=== PATIENT | female | born 1995 | race Caucasian/White ===

== ENCOUNTER 2016-12-12 06:31 | Emergency (ER) | payer MEDICAID ==
--- NOTE | 2016-12-12 06:47 | Emergency Department Record ---
History of Present Illness - General Chief complaint: ENT Stated complaint: SORE THROAT Time Seen by Provider: 12/12/16 06:32 Source: Patient Mode of Arrival: Ambulatory Limitations: No limitations - History of Present Illness Initial comments: 21 yo female presents to ED with a 2-day history of sore throat, non-productive cough, and fever of 100 degrees last night. Patient denies difficulty breathing or wheezing symptoms, and denies ill contacts. Patient reports a history of asthma and hypothyroid. MD complaint: Sore throat Onset/Timin -: Days(s) Location: Throat Severity scale (1-10): 7 Quality: Aching Consistency: Constant, Getting worse Improves with: None Worsens with: None Associated Symptoms: Cough, Sore throat - Related Data Home Medications Medication Instructions Recorded Confirmed Last Taken Metformin HCl 1,000 mg PO DAILY 03/22/16 12/12/16 04/15/16 Ibuprofen [Motrin 600Mg] 600 mg PO Q6H 12/12/16 12/12/16 12/12/16 06:00 Allergies Allergy/AdvReac Type Severity Reaction Status Date / Time No Known Drug Allergies Allergy Verified 10/30/15 09:32 Travel Screening - Travel/Exposure Within Last 30 Days Have you traveled within the last 30 days?: No Review of Systems Constitutional: Reports: Fever. Denies: Chills, Malaise, Night sweats Eyes: Denies: Eye discharge, Eye pain ENT: Reports: Throat pain. Denies: Congestion, Ear pain, Epistaxis Respiratory: Denies: Cough, Dyspnea Cardiovascular: Denies: Chest pain, Dyspnea on exertion Endocrine: Denies: Fatigue, Heat or cold intolerance Gastrointestinal: Denies: Abdominal pain, Nausea, Vomiting Genitourinary: Denies: Dysuria, Frequency, Hematuria Musculoskeletal: Denies: Arthralgia, Back pain, Gout, Joint swelling Skin: Denies: Bruising, Change in color Neurological: Denies: Abnormal gait, Confusion, Headache, Seizure Psychiatric: Denies: Anxiety Hematological/Lymphatic: Denies: Anemia, Blood Clots Past Medical History - SOCIAL HISTORY Smoking Status: Never smoker Alcohol Use: None Drug Use: None - RESPIRATORY Hx Respiratory Disorders: Yes Hx Asthma: Yes - CARDIOVASCULAR Hx Cardio Disorders: No - NEURO Hx Neuro Disorders: No - GI Hx GI Disorders: No - Hx Genitourinary Disorders: No - ENDOCRINE Hx Endocrine Disorders: Yes Hx Diabetes: Yes Hx Thyroid Disease: Yes Comment:: hyper-insulinism - MUSCULOSKELETAL Hx Musculoskeletal Disorders: No - PSYCH Hx Psych Problems: No - HEMATOLOGY/ONCOLOGY Hx Hematology/Oncology Disorders: No Family Medical History Any Significant Family History?: Yes Hx Cancer: Grandparents *Cancer Comment: grandmother-cervical and ovarian ca Physical Exam - General General Appearance: Alert, Oriented x3, Cooperative, No acute distress Limitations: No limitations - Head Head exam: Atraumatic, Normocephalic, Normal inspection Head exam detail: negative: Abrasion, Contusion, Estrada's sign, General tenderness, Hematoma, Laceration - Eye Eye exam: Normal appearance. negative: Conjunctival injection, Periorbital swelling, Periorbital tenderness - ENT Ear exam: negative: Auricular hematoma, Auricular trauma Nasal Exam: negative: Active bleeding, Discharge, Dried blood, Foreign body Mouth exam: negative: Drooling, Laceration, Muffled voice, Tongue elevation Throat exam: Normal inspection. negative: Tonsillar erythema, Tonsillomegaly, Tonsillar exudate, R peritonsillar mass, L peritonsillar mass - Neck Neck exam: Normal inspection. negative: Meningismus, Tenderness - Respiratory Respiratory exam: Normal lung sounds bilaterally. negative: Rales, Respiratory distress, Rhonchi, Stridor - Cardiovascular Cardiovascular Exam: Regular rate, Normal rhythm, Normal heart sounds - GI/Abdominal GI/Abdominal exam: Soft. negative: Rebound, Rigid, Tenderness - Rectal Rectal exam: Deferred - exam: Deferred - Extremities Extremities exam: Normal inspection. negative: Calf tenderness, Pedal edema, Tenderness - Back Back exam: Reports: Normal inspection. Denies: CVA tenderness (R), CVA tenderness (L) - Neurological Neurological exam: Alert, Normal gait, Oriented X3 - Psychiatric Psychiatric exam: Normal affect, Normal mood - Skin Skin exam: Normal color. negative: Abrasion Type of lesion: negative: abrasion Course Vital Signs 12/12/16 06:35 Temperature 97.8 F Pulse Rate 77 Respiratory 18 Rate Blood Pressure 141/96 Pulse Ox 97 - Reevaluation(s) Reevaluation #1: 12/12/16 06:56 Rapid strep negative Patient and her mother updated on her negative strep results, and the patient appears stable for discharge with symptomatic care. Disposition Disposition: Discharge Clinical Impression: Pharyngitis Qualifiers: Pharyngitis/tonsillitis etiology: unspecified etiology Qualified Code(s): J02.9 - Acute pharyngitis, unspecified Disposition: Home, Self-Care Condition: (2) Stable Instructions: Pharyngitis (ED) Additional Instructions: Return to ED if your symptoms worsen or if you have any concerns. Tylenol and Motrin as directed. Follow-up with your family doctor in 3-5 days as directed. Forms: Patient Portal Access Time of Disposition: 06:47
== END 2016-12-12 07:05 | disposition home or self-care (01) ==
LOC: ER 06:31
DX: J02.9 Acute pharyngitis, unspecified (principal)
CPT/HCPCS: 87880; 99282

== ENCOUNTER 2017-07-04 21:52 | Emergency (ER) | payer MEDICAID ==
[2017-07-04] MEDS: Diph,Pert(Acell),Tet Vac 0.5 ML SYR IM ONE (22:26)
--- NOTE | 2017-07-04 22:30 | Emergency Department Record ---
History of Present Illness - General Chief Complaint: Laceration(s) Stated Complaint: LT HAND LACERATION Time Seen by Provider: 07/04/17 22:10 Source: Patient Mode of Arrival: Ambulatory Limitations: No limitations - History of Present Illness Initial Commments: pt cut palm with scissors while cutting sisters hair. Onset/Timin -: Hour(s) Extremity Location: Left: Hand Place: Home Context: Accidental Associated Symptoms: None Treatments Prior to Arrival: Bandage - [place] Coma Scale Eye Response: (4) Open spontaneously Motor Response: (6) Obeys commands Verbal Response: (5) Oriented [place] Total: 15 - Related Data Home Medications Medication Instructions Recorded Confirmed Last Taken Levothyroxine Sodium [Synthroid] 75 mcg PO DAILY 07/04/17 07/04/17 Unknown Allergies Allergy/AdvReac Type Severity Reaction Status Date / Time No Known Drug Allergies Allergy Verified 10/30/15 09:32 Travel Screening - Travel/Exposure Within Last 30 Days Have you traveled within the last 30 days?: No - Travel/Exposure Within Last Year Have you traveled outside the [place] in the last year?: No - Additonal Travel Details Have you been exposed to anyone with a communicable illness?: No - Travel Symptoms Symptom Screening: None Review of Systems Reviewed: No additional complaints except as noted below Constitutional: Reports: As per HPI. Denies: Chills, Fever, Malaise, Night sweats, Weakness, Weight change Eyes: Reports: As per HPI. Denies: Eye discharge, Eye pain, Photophobia, Vision change ENT: Reports: As per HPI. Denies: Congestion, Dental pain, Ear pain, Epistaxis , Hearing loss, Throat pain Respiratory: Reports: As per HPI. Denies: Cough, Dyspnea, Hemoptysis, Stridor, Wheezes Cardiovascular: Reports: As per HPI. Denies: Arrhythmia, Chest pain, Dyspnea on exertion, Edema, Murmurs, Orthopnea, Palpitations, Paroxysmal nocturnal dyspnea, Rheumatic Fever, Syncope Endocrine: Reports: As per HPI. Denies: Fatigue, Heat or cold intolerance, Polydipsia, Polyuria Gastrointestinal: Reports: As per HPI. Denies: Abdominal pain, Constipation, Diarrhea, Hematemesis, Hematochezia, Melena, Nausea, Vomiting Genitourinary: Reports: As per HPI. Denies: Abnormal menses, Discharge, Dyspareunia, Dysuria, Frequency, Hematuria, Incontinence, Retention, Urgency Musculoskeletal: Reports: As per HPI. Denies: Arthralgia, Back pain, Gout, Joint swelling, Myalgia, Neck pain Skin: Reports: As per HPI. Denies: Bruising, Change in color, Change in hair/ nails, Lesions, Pruritus, Rash Neurological: Reports: As per HPI. Denies: Abnormal gait, Confusion, Headache, Numbness, Paresthesias, Seizure, Tingling, Tremors, Vertigo, Weakness Psychiatric: Reports: As per HPI. Denies: Anxiety, Auditory hallucinations, Depression, Homicidal thoughts, Suicidal thoughts, Visual hallucinations Hematological/Lymphatic: Reports: As per HPI. Denies: Anemia, Blood Clots, Easy bleeding, Easy bruising, Swollen glands Past Medical History - SOCIAL HISTORY Smoking Status: Never smoker Alcohol Use: None Drug Use: None - RESPIRATORY Hx Respiratory Disorders: Yes Hx Asthma: Yes - CARDIOVASCULAR Hx Cardio Disorders: No - NEURO Hx Neuro Disorders: No - GI Hx GI Disorders: No - Hx Genitourinary Disorders: No - ENDOCRINE Hx Endocrine Disorders: Yes Hx Diabetes: Yes Hx Thyroid Disease: Yes Comment:: hyper-insulinism - MUSCULOSKELETAL Hx Musculoskeletal Disorders: No - PSYCH Hx Psych Problems: No - HEMATOLOGY/ONCOLOGY Hx Hematology/Oncology Disorders: No Family Medical History Any Significant Family History?: No Hx Cancer: Grandparents *Cancer Comment: grandmother-cervical and ovarian ca Physical Exam - General General Appearance: Alert, Oriented x3, Cooperative, No acute distress - Head Head exam: Normal inspection - Eye Eye exam: Normal appearance, PERRL, EOMI Pupils: Normal accommodation - ENT ENT exam: Normal exam, Mucous membranes moist, Normal external ear exam, Normal orophraynx Ear exam: Normal external inspection. negative: External canal tenderness Nasal Exam: Normal inspection. negative: Discharge, Sinus tenderness Mouth exam: Normal external inspection, Tongue normal Teeth exam: Normal inspection. negative: Dental caries Throat exam: Normal inspection. negative: Tonsillar erythema, Tonsillar exudate - Neck Neck exam: Normal inspection, Full ROM. negative: Tenderness - Respiratory Respiratory exam: Normal lung sounds bilaterally. negative: Respiratory distress - Cardiovascular Cardiovascular Exam: Regular rate, Normal rhythm, Normal heart sounds - GI/Abdominal GI/Abdominal exam: Soft, Normal bowel sounds. negative: Tenderness - Rectal Rectal exam: Deferred - exam: Deferred - Extremities Extremities exam: Normal inspection, Full ROM, Normal capillary refill, Tenderness Image of Hand: 1 - 1.5cm lac - Back Back exam: Reports: Normal inspection, Full ROM. Denies: Muscle spasm, Rash noted, Tenderness - Neurological Neurological exam: Alert, CN II-XII intact, Normal gait, Oriented X3 - Psychiatric Psychiatric exam: Normal affect, Normal mood - Skin Skin exam: Dry, Intact, Normal color, Warm Course Vital Signs 07/04/17 21:55 Temperature 98.4 F Pulse Rate 75 Respiratory 20 Rate Blood Pressure 143/97 Pulse Ox 99 Disposition Disposition: Discharge Clinical Impression: Laceration of hand Qualifiers: Encounter type: initial encounter Foreign body presence: without foreign body Laterality: left Qualified Code(s): S61.412A - Laceration without foreign body of left hand, initial encounter Disposition: Home, Self-Care Condition: (1) Good Instructions: Laceration (ED) Additional Instructions: follow up with family doctor. return sooner if worse. stitches out in 7-8 days Forms: Patient Portal Access Quality - Quality Measures Quality Measures: N/A - Blood Pressure Screening Does Patient Have Any of the Following: No Blood Pressure Classification: Hypertensive Reading Systolic Measurement: 143 Diastolic Measurement: 97 Screening for High Blood Pressure: < First Hypertensive BP, F/U Documented > [ G8950] First Hypertensive Follow-up Interventions: Follow-up with rescreen GT 1 day and LT 4 weeks. Laceration - Other - Time Out Informed consent:: Informed consent obtained Confirmed first & last name, , procedure, correct site?: Yes Start Date:: 07/04/17 Start Time:: 22:20 - Location Location of laceration:: Left Laceration located on:: Hand Length of laceration:: 1.5 Length of laceration:: cm - Clean and Prep Laceration cleaning method:: Cleansed Laceration cleaning agent:: Normal Saline - Local Anesthetic Lidocaine used:: 1% Lidocaine dose:: 1 mL - Medication Medicated for procedure?: No - Procedural Detail Foreign body in the wound?: No Undermining was preformed?: No Stent applied?: No [place] applied?: No Skin suture pattern:: Interrupted Suture material/size:: 5-0: Nylon Number of skin sutures:: 2 - Post Procedural Detail Complications:: No Procedure Tolerated by Patient:: Well
== END 2017-07-04 22:54 | disposition home or self-care (01) ==
LOC: ER 21:52
DX: S61.412A Laceration without foreign body of left hand, initial encounter (principal); W26.8XXA Contact with other sharp object(s), not elsewhere classified, initial encounter; Y93.F9 Activity, other caregiving
CPT/HCPCS: 12001; 90715; 96372; 99283

== ENCOUNTER 2017-09-02 16:11 | Emergency (ER) | payer MEDICAID ==
[2017-09-02] MEDS: CLINDAMYCIN 150 MG CAP PO ONE (16:55)
[2017-09-02] MEDS: NAPROXEN 250 MG TABLET PO ONE (16:56)
--- NOTE | 2017-09-02 16:57 | Emergency Department Record ---
History of Present Illness - General Chief complaint: ENT Stated complaint: INFECTION IN MOUTH Time Seen by Provider: 09/02/17 16:49 Source: Patient Mode of Arrival: Ambulatory Limitations: No limitations - History of Present Illness Initial comments: The patient has had dental pain for a month. She does have an appointment with a dentist for tomorrow. The pain is mainly over the L upper molar area and there is swelling to the roof of the mouth. She denies any pain with swallowing or fever or neck issues. MD complaint: Tooth pain Onset/Timin -: Month(s) Severity scale (1-10): 7 Quality: Aching Consistency: Constant Improves with: None Worsens with: None Associated Symptoms: Gum swelling - Related Data Previous Rx's Medication Instructions Recorded Clindamycin HCl [Cleocin HCl] 300 mg PO QID #28 capsule 09/02/17 Naproxen [Naprosyn] 250 mg PO BID #14 tablet 09/02/17 Allergies Allergy/AdvReac Type Severity Reaction Status Date / Time No Known Drug Allergies Allergy Verified 10/30/15 09:32 Travel Screening - Travel/Exposure Within Last 30 Days Have you traveled within the last 30 days?: No - Travel/Exposure Within Last Year Have you traveled outside the [place] in the last year?: No - Additonal Travel Details Have you been exposed to anyone with a communicable illness?: No - Travel Symptoms Symptom Screening: None Review of Systems Constitutional: Denies: Chills, Fever Eyes: Denies: Eye discharge ENT: Denies: Congestion Respiratory: Denies: Cough, Dyspnea Past Medical History - SOCIAL HISTORY Smoking Status: Never smoker Alcohol Use: None Drug Use: None - RESPIRATORY Hx Respiratory Disorders: Yes Hx Asthma: Yes - CARDIOVASCULAR Hx Cardio Disorders: No - NEURO Hx Neuro Disorders: No - GI Hx GI Disorders: No - Hx Genitourinary Disorders: No - ENDOCRINE Hx Endocrine Disorders: Yes Hx Diabetes: Yes Hx Thyroid Disease: Yes Comment:: hyper-insulinism - MUSCULOSKELETAL Hx Musculoskeletal Disorders: No - PSYCH Hx Psych Problems: No - HEMATOLOGY/ONCOLOGY Hx Hematology/Oncology Disorders: No Family Medical History Any Significant Family History?: No Hx Cancer: Grandparents *Cancer Comment: grandmother-cervical and ovarian ca Physical Exam - General General Appearance: Alert, Oriented x3, Cooperative, No acute distress - Head Head exam: Atraumatic, Normocephalic, Normal inspection - Eye Eye exam: Normal appearance, PERRL - ENT ENT exam: Normal external ear exam Ear exam: Normal external inspection Nasal Exam: Normal inspection Teeth exam: Dental tenderness #, Gingival enlargement (to the roof of the mouth medial to the L upper molars.). negative: Normal inspection Throat exam: Normal inspection. negative: Tonsillar erythema, Tonsillar exudate , R peritonsillar mass, L peritonsillar mass Image of Mouth/Teeth: 1 - Area of swelling and tenderness. - Neck Neck exam: Normal inspection, Full ROM. negative: Lymphadenopathy, Meningismus , Tenderness - Respiratory Respiratory exam: Normal lung sounds bilaterally - Cardiovascular Cardiovascular Exam: Regular rate, Normal rhythm, Normal heart sounds Course Vital Signs 09/02/17 16:31 Pulse Rate 80 Respiratory 16 Rate Blood Pressure 140/100 Pulse Ox 95 - Reevaluation(s) Reevaluation #1: I did explain to the patient that it appears she has a dental infection and we will place her on appropriate medicines and she will need to keep her appointment for tomorrow with her Dentist. 09/02/17 16:55 Disposition Disposition: Discharge Clinical Impression: Pain, dental Disposition: Home, Self-Care Condition: (2) Stable Instructions: Dental Abscess (ED) Additional Instructions: Please continue the medicines and see your Dentist tomorrow. Return to the ER for any worsening problems. Prescriptions: Clindamycin HCl [Cleocin HCl] 300 mg PO QID #28 capsule Naproxen [Naprosyn] 250 mg PO BID #14 tablet Forms: Patient Portal Access Time of Disposition: 16:57 Quality - Quality Measures Quality Measures: N/A - Blood Pressure Screening View Details: Yes Does Patient Have Any of the Following: No Blood Pressure Classification: Hypertensive Reading Systolic Measurement: 138 Diastolic Measurement: 93 Screening for High Blood Pressure: < Normal BP, F/U Not Required > [G8783]
== END 2017-09-02 17:06 | disposition home or self-care (01) ==
LOC: ER 16:11
DX: K04.7 Periapical abscess without sinus (principal)
CPT/HCPCS: 99282

== ENCOUNTER 2018-03-28 07:32 | Emergency (ER) | payer MEDICAID ==
[2018-03-28] MEDS ORDERED: 0.9 % SODIUM CHLORIDE 1,000 ML BAG IV ONE (07:41)
[2018-03-28] MEDS ORDERED: ONDANSETRON HCL IV 4 MG/2 ML VIAL IVP ONE (07:41)
--- NOTE | 2018-03-28 07:46 | Emergency Department Record ---
History of Present Illness - General Chief Complaint: Abdominal Pain Stated Complaint: RIGHT SIDE ABDOMINAL PAIN Time Seen by Provider: 03/28/18 07:40 Source: Patient Mode of Arrival: Ambulatory Limitations: No limitations - History of Present Illness Initial Comments: 22 yo female presents with abdominal pain. The onset was last night at 10pm. She has nausea. No vomiting. The pain is sharp and radiates from the epigastric to the RUQ. No history of abdominal surgery. No hematuria, no fever , no chest pain or shortness of breath. She has had similar symptoms once or twice a month the last 6 months. She has not had any imaging. Her last meal was last night. MD Complaint: Abdominal pain -: Month(s) (On and Off 6 months) Location: Epigastric, RUQ Radiation: Epigastric, RUQ Migration to: RUQ Severity: Moderate Quality: Sharp Consistency: Constant Improves With: Nothing Worsens With: Nothing Associated Symptoms: Nausea - Related Data Patient : No Home Medications Medication Instructions Recorded Confirmed Last Taken Ranitidine HCl [Zantac] 150 mg PO DAILY 03/28/18 03/28/18 Unknown Previous Rx's Medication Instructions Recorded Hydrocodone/Acetaminophen [[place] 1 each PO Q6H #10 tablet 03/28/18 5-325 Tablet] Ondansetron [Zofran Odt] 4 mg PO Q8H #15 tab.rapdis 03/28/18 Pantoprazole Sodium [Protonix] 40 mg PO DAILY #30 tablet. 03/28/18 Allergies Allergy/AdvReac Type Severity Reaction Status Date / Time No Known Drug Allergies Allergy Verified 03/28/18 07:38 Travel Screening - Travel/Exposure Within Last 30 Days Have you traveled within the last 30 days?: No Review of Systems Constitutional: Denies: Chills, Fever, Malaise, Weakness, Other Eyes: Denies: Eye discharge, Eye pain, Photophobia, Vision change ENT: Denies: Congestion, Throat pain Respiratory: Denies: Cough, Dyspnea, Hemoptysis, Stridor, Wheezes Cardiovascular: Denies: Chest pain, Palpitations, Syncope Endocrine: Denies: Fatigue, Polydipsia, Polyuria Gastrointestinal: Reports: As per HPI, Abdominal pain, Nausea. Denies: Constipation, Diarrhea, Hematemesis, Hematochezia, Vomiting Genitourinary: Denies: Dysuria, Urgency Musculoskeletal: Denies: Arthralgia, Back pain, Joint swelling, Myalgia Skin: Denies: Bruising, Change in color, Rash Neurological: Denies: Headache, Numbness, Weakness Psychiatric: Denies: Anxiety Hematological/Lymphatic: Denies: Easy bleeding, Easy bruising Past Medical History - SOCIAL HISTORY Smoking Status: Never smoker Alcohol Use: None Drug Use: None - RESPIRATORY Hx Respiratory Disorders: Yes Hx Asthma: Yes - CARDIOVASCULAR Hx Cardio Disorders: No - NEURO Hx Neuro Disorders: No - GI Hx GI Disorders: Yes Hx Reflux: Yes - Hx Genitourinary Disorders: No - ENDOCRINE Hx Endocrine Disorders: Yes Hx Diabetes: Yes Hx Thyroid Disease: Yes Comment:: hyper-insulinism - MUSCULOSKELETAL Hx Musculoskeletal Disorders: No - PSYCH Hx Psych Problems: No - HEMATOLOGY/ONCOLOGY Hx Hematology/Oncology Disorders: No Family Medical History Any Significant Family History?: Yes Hx Cancer: Grandparents *Cancer Comment: grandmother-cervical and ovarian ca Physical Exam - General General Appearance: Alert, Oriented x3, Cooperative, No acute distress Limitations: No limitations - Head Head exam: Normal inspection - Eye Eye exam: Normal appearance, PERRL. negative: Conjunctival injection, Scleral icterus - ENT ENT exam: Normal exam, Mucous membranes moist Ear exam: Normal external inspection Nasal Exam: Normal inspection Mouth exam: Normal external inspection - Neck Neck exam: Normal inspection, Full ROM. negative: Tenderness - Respiratory Respiratory exam: Normal lung sounds bilaterally. negative: Respiratory distress - Cardiovascular Cardiovascular Exam: Regular rate, Normal rhythm, Normal heart sounds - GI/Abdominal GI/Abdominal exam: Soft, Tenderness (Tender RUQ and epigastric, otherwise soft abdomen). negative: Distended, Guarding, Rebound, Rigid - Rectal Rectal exam: Deferred - exam: Deferred - Extremities Extremities exam: Normal inspection - Back Back exam: Reports: Normal inspection, Full ROM. Denies: Muscle spasm, Rash noted, Tenderness - Neurological Neurological exam: Alert, Normal gait, Oriented X3 - Psychiatric Psychiatric exam: Normal affect, Normal mood - Skin Skin exam: Dry, Intact, Normal color, Warm Course Vital Signs 03/28/18 07:35 Temperature 98.1 F Pulse Rate 79 Respiratory 18 Rate Blood Pressure 154/96 Pulse Ox 98 - Reevaluation(s) Reevaluation #1: 03/28/18 09:07 No acute changes on the labs with normal CBC,CMP,Lipase. UA negative HCG 03/28/18 09:08 03/28/18 09:43 The US result was reviewed. No gallstones or acute findings. Fatty liver likely based on body habitus. I discussed the case with Dr Mitchell. With normal labs, normal US he recommends follow up outpatient with him and schedule for HIDA scan prior to that. A referral was placed. Specialty clinic called to facilitate the outpatient work up. Medical Decision Making - Lab Data Result diagrams: 03/28/18 08:20 03/28/18 08:20 Disposition Disposition: Discharge Clinical Impression: Epigastric pain, Right upper quadrant pain Disposition: Home, Self-Care Condition: (1) Good Instructions: Abdominal Pain (ED) Additional Instructions: You will need to eat a very bland diet without fatty foods to prevent the pain Return or be seen if the pain returns, vomiting, or any new concerns. Prescriptions: Hydrocodone/Acetaminophen [[place] 5-325 Tablet] 1 each PO Q6H #10 tablet Ondansetron [Zofran Odt] 4 mg PO Q8H #15 tab.rapdis Pantoprazole Sodium [Protonix] 40 mg PO DAILY #30 tablet. Referrals: Praveen Mitchell [DOCTOR OF OSTEOPATH] - [facility] Specialty Clinics [Provider Group] Forms: Patient Portal Access Quality - Quality Measures Quality Measures: N/A - Blood Pressure Screening Does Patient Have Any of the Following: No Blood Pressure Classification: Hypertensive Reading Systolic Measurement: 154 Diastolic Measurement: 96 Screening for High Blood Pressure: < Pre-Hypertensive BP, F/U Documented > [ G8950] Pre-Hypertensive Follow-up Interventions: Referral to alternative/primary care provider.
[2018-03-28] MEDS ORDERED: KETOROLAC 30 MG/ML VIAL IVP ONE (07:47)
[2018-03-28] MEDS ORDERED: FENTANYL PF 100MCG/2ML VIAL IVP ONE (07:55)
[2018-03-28 08:31] LABS: BASO % 0.3 % (0-6); EOS % 0.9 % (0-6); GRAN % 57.8 % (47-80); HEMATOCRIT 42.2 % (35.0-47.0); HEMOGLOBIN 13.5 gm/dl (11.6-16.0); LYMPH % 34.5 % (16-45); MEAN CELL VOLUME 83.2 fl (81-97); MEAN CORPUSCULAR HEMOGLOBIN 26.6 pg (27-33); MEAN PLATELET VOLUME 11.1 fl (7.4-10.4); MONO % 6.5 % (0-9); PLATELET COUNT 207 K/uL (130-400); RED BLOOD COUNT 5.07 M/uL (3.80-5.40); RED CELL DISTRIBUTION WIDTH 14.3 % (11.5-14.5); URINE APPEARANCE CLEAR; URINE BILIRUBIN NEGATIVE (NEGATIVE); URINE BLOOD LARGE (NEGATIVE); URINE COLOR YELLOW; URINE GLUCOSE (UA) NEGATIVE (NEGATIVE); URINE KETONE NEGATIVE (NEGATIVE); URINE LEUKOCYTE ESTERASE NEGATIVE (NEGATIVE); URINE NITRITE NEGATIVE (NEGATIVE); URINE PROTEIN NEGATIVE (NEGATIVE); URINE UROBILINOGEN 0.2 E.U./dL (0.20 - 1.00); WHITE BLOOD COUNT W/O DIFF 6.4 K/uL (4.2-12.2)
[2018-03-28 08:37] LABS: HCG,QUALITATIVE URINE NEGATIVE (NEGATIVE)
[2018-03-28 08:39] LABS: BLOOD UREA NITROGEN 13 mg/dL (6-20); CREATININE 0.5 mg/dL (0.5-0.9); EST GLOMERULAR FILTRATION RATE > 60 mL/min
[2018-03-28 08:40] LABS: TOTAL PROTEIN 7.7 g/dL (6.6-8.7)
[2018-03-28 08:42] LABS: GLUCOSE,RANDOM 111 mg/dL (74-109)
[2018-03-28 08:44] LABS: ALT/SGPT 28 U/L (<33); URINE EPITHELIAL CELLS 0 - 2 (FEW); URINE RBC >50 (NONE SEEN)
[2018-03-28 08:45] LABS: ALB/GLOB RATIO 1.2 (1.1-1.8); ALBUMIN 4.2 g/dL (4.0-5.0); ALKALINE PHOSPHATASE 51 U/L (35-104); AST/SGOT 24 U/L (10.0-35.0); LIPASE 19 U/L (13-60); URINE AMORPHOUS SEDIMENT 2+
--- NOTE | 2018-03-29 11:42 | ULTRASOUND REPORT ---
EXAM: EMERGENCY COMPLETE ABDOMEN ULTRASOUND HISTORY: RIGHT UPPER QUADRANT EPIGASTRIC PAIN AFTER EATING. TECHNIQUE: Complete real-time ultrasound examination of the abdomen was obtained. Comparison: None. FINDINGS: The grid casting machine operator helper notes that the exam was quite limited by the patient' s body habitus as well as overlying gas. Several of the organs as detailed below were not well seen because of this. The majority of the pancreas was visualized and was negative as seen with no pancreatic mass or peripancreatic fluid collection identified. The abdominal aorta appears negative with no aneurysm seen. The IVC was relatively poorly seen, but negative as visualized. The liver is relatively poorly seen due to overlying artifact with no gross hepatic mass or intrahepatic biliary dilatation seen. Coarsened echogenicity of the liver may represent some diffuse fatty infiltration of the liver or other diffuse hepatic parenchymal disease. The right kidney measures 11.8 cm in length with no hydronephrosis evident. The common duct was seen and was of normal caliber. No gallstones are identified and no pericholecystic fluid collection is seen. The grid casting machine operator helper did indicate a positive sonographic Hook's sign, however. The left kidney measures 12.5 cm in length with no hydronephrosis evident. The spleen is partially obscured by overlying rib artifact, but negative as visualized with no splenic mass evident. IMPRESSION: 1. THE EXAM IS SOMEWHAT LIMITED BY PATIENT BODY HABITUS AND OVERLYING ARTIFACT. 2. COARSENED ECHOGENICITY OF THE LIVER WHICH MAY REPRESENT SOME DIFFUSE FATTY INFILTRATION OF THE LIVER. 3. NO GALLSTONES OR BILIARY DILATATION SEEN. THE MEDICAL BILLING CODER DOES INDICATE A POSITIVE SONOGRAPHIC HOOK'S SIGN, HOWEVER. 4. NO HYDRONEPHROSIS EVIDENT. JOB NUMBER: [id number] MTDD
== END 2018-03-28 10:15 | disposition home or self-care (01) ==
LOC: ER 07:32
DX: R10.13 Epigastric pain (principal); R10.11 Right upper quadrant pain; R11.0 Nausea; E11.9 Type 2 diabetes mellitus without complications
CPT/HCPCS: 99284 ×2; 96374; 96375; 83690; 85025; 80053; 81001; 81025; 76700; J1885; J2405; J3010; J7030

== ENCOUNTER 2018-04-18 08:59 | Day surgery (SDC) | payer MEDICAID ==
[2018-04-18] MEDS ORDERED: ONDANSETRON HCL IV 4 MG/2 ML VIAL IVP ONE (09:00)
[2018-04-18] MEDS ORDERED: ACETAMINOPHEN 1,000 MG/100 ML BTL IV ONE (09:00)
[2018-04-18] MEDS ORDERED: FAMOTIDINE 20MG TABLET PO ONE (09:00)
[2018-04-18] MEDS ORDERED: ROCURONIUM BROMIDE 50MG/5ML VIAL IV ONE (09:00)
[2018-04-18] MEDS ORDERED: DESFLURANE 240 ML BTL INH ONE (09:00)
[2018-04-18] MEDS ORDERED: MECLIZINE 25 MG TABLET PO ONE (09:00)
[2018-04-18] MEDS ORDERED: PROPOFOL 10 MG/ML VIAL IV ONE (09:00)
[2018-04-18] MEDS ORDERED: LIDOCAINE 1% MDV (10MG/ML) 20ML VIAL SQ ONE (09:00)
[2018-04-18] MEDS ORDERED: SUCCINYLCHOLINE 20 MG/ML 10ML IVP ONE (09:00)
[2018-04-18] MEDS ORDERED: FENTANYL PF 100MCG/2ML VIAL IV ONE (09:00)
[2018-04-18] MEDS ORDERED: BUPIVACAINE 0.25% W/EPI MPF 30ML VIAL IVP ONE (09:00)
[2018-04-18] MEDS ORDERED: SCOPOLAMINE 1 PATCH TDSY TD ONE (09:00)
[2018-04-18] MEDS ORDERED: GLYCOPYRROLATE 0.2 MG/ML ML IV ONE (09:00)
[2018-04-18] MEDS ORDERED: METOCLOPRAMIDE 10 MG TABLET PO ONE (09:00)
[2018-04-18] MEDS ORDERED: ACETAMINOPHEN 500 MG TABLET PO ONE (09:00)
[2018-04-18] MEDS ORDERED: NEOSTIGMINE 1 MG/1 ML,10ML VIAL IV ONE (09:00)
--- NOTE | 2018-04-18 13:20 | Operative Note ---
DATE OF SURGERY: 04/18/2018 Surgeon: Praveen Mitchell DO Referring physician: Twila Santiago PREOPERATIVE DIAGNOSES: 1. Cholelithiasis. 2. Chronic cholecystitis. POSTOPERATIVE DIAGNOSES: 1. Cholelithiasis. 2. Chronic cholecystitis. OPERATION: Laparoscopic cholecystectomy. Indication: The patient is a 22-year-old female who is having ongoing right subcostal post prandial pain. Imaging studies did reveal cholelithiasis with evidence of acute cholecystitis. We did discuss cholecystectomy versus medical management. She desired surgical intervention. The patient was morbidly obese, over 300 pounds on a 5 feet 1 inch frame, and the complications were discussed, which included, but not limited to, bleeding, infection, wound infection, possibly an open operation, bile duct injury, bowel leak. She understood this fully and consent was signed, questions were answered. PROCEDURE: She was taken to the operating room and placed in the supine position. General anesthesia was administered per the Department of Anesthesia. The patient's abdomen was prepped and draped in the usual fashion. The supraumbilical region was anesthetized with a total of 5 mL of 0.25% Sensorcaine with epinephrine. A supraumbilical incision was made, this was carried down to the anterior rectus fascia. This is incised. A Duy clamp was placed in the fascial edges and brought up through the wound. Stay sutures of 0 Vicryl placed. The posterior rectus sheath was identified and incised, the peritoneal cavity was entered bluntly. At this time, a 10 mm blunt Olivia port was placed and adequate pneumoperitoneum was established. Under direct visualization an additional 5 mm epigastric and two 5 mm right subcostal ports were placed. The patient had severe fatty infiltration of her liver, it was somewhat challenging retracting her gallbladder up over the top. I attempted to place a fifth port in the right mid abdomen, through this track was placed going down trans colon, giving us excellent exposure. The hepatocystic triangle was thoroughly dissected out. There was no aberrant anatomy, no posterior ductal structures. The distal aspect of half of the gallbladder was released from the cystic plate, elongating a rectoductal window. The cystic duct and the cystic artery were clearly identified. There were no other anatomic structures noted. There was no aberrant anatomy, no posterior ductal structures. The cystic artery was taken down with the use of the Colin harmonic. The cystic duct was triply clipped and cut in a standard fashion. The gallbladder was then taken off the liver bed with the Colin harmonic. This did peel off somewhat due to the weight of the liver itself, this was then placed into the EndoCatch bag and brought out through the supraumbilical port. The right upper quadrant was rechecked and noted to be hemostatic, no bleeding, no bile leak, and no bowel injury noted. The patient was leveled out and the pneumoperitoneum was released, all ports removed. The fascia closed with 0 Vicryl in a [id number] fashion. The skin in all five ports was closed with 4-0 Vicryl. She was taken to the recovery room in satisfactory condition. FINDINGS AT THE TIME OF SURGERY: Chronic cholecystitis. CC: Twila HERRING
== END 2018-04-18 12:36 | disposition home or self-care (01) ==
LOC: SUR 08:59
PROVIDERS: ATTEND Surgery
DX: K82.8 Other specified diseases of gallbladder (principal); E87.6 Hypokalemia; E11.9 Type 2 diabetes mellitus without complications; Z79.84 Long term (current) use of oral hypoglycemic drugs
CPT/HCPCS: 36416; 81025; 82948; C1776; J0330; J2405; J2710

== ENCOUNTER 2018-05-23 13:37 | Emergency (ER) | payer MEDICAID ==
--- NOTE | 2018-05-23 14:12 | Emergency Department Record ---
History of Present Illness - General Chief Complaint: General Stated Complaint: WOUND FROM GALLBLADDER SURGERY HAS OPENED UP Time Seen by Provider: 05/23/18 13:41 Source: Patient, Family Mode of arrival: Ambulatory Limitations: No limitations - History of Present Illness Initial Comments: 22 yo female presents with a wound that opened on her umbilical incision site from a 04/18/18 surgery. She noted some drainage. The wound opened one week ago. No fevers. She has not contacted Dr Mitchell. Normal appetite. No fevers. MD Complaint: Wound re-check Initial Visit For: Other Returns Today for: Wound recheck Symptoms Since Prior Visit: No new symptoms Associated Symptoms: None - Related Data Previous Rx's Medication Instructions Recorded Cephalexin [Keflex] 500 mg PO QID #28 cap 05/23/18 Allergies Allergy/AdvReac Type Severity Reaction Status Date / Time No Known Drug Allergies Allergy Verified 03/28/18 07:38 Review of Systems Constitutional: Denies: Chills, Fever, Malaise, Weakness Eyes: Denies: Eye discharge ENT: Denies: Congestion, Throat pain Respiratory: Denies: Cough Cardiovascular: Denies: Chest pain, Syncope Endocrine: Denies: Fatigue Gastrointestinal: Denies: Abdominal pain, Diarrhea, Nausea, Vomiting Genitourinary: Denies: Dysuria Musculoskeletal: Denies: Arthralgia, Myalgia Skin: Denies: Bruising, Change in color, Rash Neurological: Denies: Headache Psychiatric: Denies: Anxiety Hematological/Lymphatic: Denies: Easy bleeding, Easy bruising Past Medical History - SOCIAL HISTORY Smoking Status: Never smoker - RESPIRATORY Hx Asthma: Yes - CARDIOVASCULAR Hx Cardio Disorders: No - NEURO Hx Neuro Disorders: No - GI Hx GI Disorders: Yes - Hx Genitourinary Disorders: No - ENDOCRINE Hx Endocrine Disorders: Yes Hx Diabetes: Yes Hx Thyroid Disease: Yes Comment:: hyper-insulinism - MUSCULOSKELETAL Hx Musculoskeletal Disorders: No - PSYCH Hx Psych Problems: No - HEMATOLOGY/ONCOLOGY Hx Hematology/Oncology Disorders: No Family Medical History Hx Cancer: Grandparents *Cancer Comment: grandmother-cervical and ovarian ca Physical Exam - General General Appearance: Alert, Oriented x3, Cooperative, No acute distress Limitations: No limitations - Head Head exam: Atraumatic, Normal inspection - Eye Eye exam: Normal appearance - ENT ENT exam: Normal exam Ear exam: Normal external inspection Nasal Exam: Normal inspection Mouth exam: Normal external inspection - Neck Neck exam: Normal inspection - Respiratory Respiratory exam: Normal lung sounds bilaterally - Cardiovascular Cardiovascular Exam: Regular rate, Normal rhythm, Normal heart sounds - GI/Abdominal GI/Abdominal exam: Soft, Other (5mm x 2mm x 3mm deep wound inferior portion of the umbilical incision). negative: Distended, Guarding, Rebound, Rigid, Tenderness - Rectal Rectal exam: Deferred - exam: Deferred - Extremities Extremities exam: Normal inspection - Neurological Neurological exam: Alert, Oriented X3 - Psychiatric Psychiatric exam: Normal affect, Normal mood - Skin Skin exam: Dry, Normal color, Warm. negative: Intact Course - Reevaluation(s) Reevaluation #1: 5mm x 2mm wound opening on the inferior area of the umbilical incision site. I SW Dr Mitchell. He recommends iodoform packing and follow up with him in the office 1/4 inch packing placed. She was given instructions for home and to change the dressing PRN We discussed follow up and reasons to return to the ED. 05/23/18 14:03 Disposition Disposition: Discharge Clinical Impression: Wound dehiscence Disposition: Home, Self-Care Condition: (1) Good Instructions: Acute Wound Care (ED) Additional Instructions: Change the packing as needed if it falls out Follow up with Dr Mitchell on Wednesday Return if worse, red, pain fever or concerns. Prescriptions: Cephalexin [Keflex] 500 mg PO QID #28 cap Referrals: Praveen Mitchell [DOCTOR OF OSTEOPATH] - [facility] [Provider Group] Forms: Patient Portal Access Time of Disposition: 14:12 Quality - Quality Measures Quality Measures: N/A - Blood Pressure Screening Does Patient Have Any of the Following: No Blood Pressure Classification: Hypertensive Reading Systolic Measurement: 137 Diastolic Measurement: 96 Screening for High Blood Pressure: < Pre-Hypertensive BP, F/U Documented > [ G8950] Pre-Hypertensive Follow-up Interventions: Referral to alternative/primary care provider.
== END 2018-05-23 14:46 | disposition home or self-care (01) ==
LOC: ER 13:37
DX: T81.32XA Disruption of internal operation (surgical) wound, not elsewhere classified, initial encounter (principal); E11.9 Type 2 diabetes mellitus without complications
CPT/HCPCS: 99283

== ENCOUNTER 2019-07-11 21:20 | Emergency (ER) | payer MEDICAID ==
[2019-07-12 00:05] LABS: URINE APPEARANCE CLEAR; URINE BILIRUBIN NEGATIVE (NEGATIVE); URINE BLOOD NEGATIVE (NEGATIVE); URINE COLOR YELLOW; URINE GLUCOSE (UA) NEGATIVE (NEGATIVE); URINE KETONE NEGATIVE (NEGATIVE); URINE LEUKOCYTE ESTERASE NEGATIVE (NEGATIVE); URINE NITRITE NEGATIVE (NEGATIVE); URINE PROTEIN NEGATIVE (NEGATIVE)
[2019-07-12 00:08] LABS: HCG,QUALITATIVE URINE NEGATIVE (NEGATIVE)
[2019-07-12] MEDS ORDERED: ACETAMINOPHEN 500 MG TABLET PO ONE (00:35)
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
== END 2019-07-12 01:39 | disposition home or self-care (01) ==
LOC: ER 21:20
DX: S80.02XA Contusion of left knee, initial encounter (principal); M54.5 Low back pain; E11.9 Type 2 diabetes mellitus without complications; V43.53XA Car driver injured in collision with pick-up truck in traffic accident, initial encounter; Y92.410 Unspecified street and highway as the place of occurrence of the external cause
CPT/HCPCS: 72100; 81003; 81025; 99284